=== PATIENT | female | born 1995 | race Caucasian/White ===

== ENCOUNTER 2019-02-24 03:34 | Outpatient (CLI) | payer OTHER ==
[2019-02-24 04:17] LABS: APPEARANCE,URINE CLOUDY; BILIRUBIN,URINE NEGATIVE (NEGATIVE); COLOR,URINE YELLOW; GLUCOSE, URINE NEGATIVE (NEGATIVE); KETONES,URINE NEGATIVE (NEGATIVE); LEUKOCYTE ESTERASE,URINE LARGE (NEGATIVE); NITRITE,URINE NEGATIVE (NEGATIVE); PROTEIN,URINE 30 mg/dL (NEGATIVE); URINE SPECIFIC GRAVITY 1.016; UROBILINOGEN,URINE NEGATIVE mg/dL (<2.0)
[2019-02-24 04:43] LABS: URINE AMPHETAMINES SCREEN NEGATIVE; URINE BARBITURATES SCREEN NEGATIVE; URINE BENZODIAZEPINES SCREEN NEGATIVE; URINE COCAINE SCREEN NEGATIVE; URINE MARIJUANA (THC) SCREEN NEGATIVE; URINE METHADONE SCREEN NEGATIVE; URINE PHENCYCLIDINE SCREEN NEGATIVE
--- NOTE | 2019-02-24 04:46 | Non Stress Test Report ---
Non Stress Test Datetime Report Generated by CPN: 02/24/2019 04:46 DEMOGRAPHIC EGA NST: 39.5 INDICATION Indication for Study: Decreased Movement MONITORING Monitor Explained: Monitor Explained; Test Explained; Patient Verbalized Understanding Time on Monitor: 02/24/2019 03:44 Time off Monitor: 02/24/2019 04:40 NST Duration: 56 NST INTERVENTIONS NST Interventions: PO Hydration Physician Notified NST: Dr. Younger BABY A: [id number] BABY A Movement : Present Contraction Frequency : x1 FHR Baseline : 130 Accelerations : 15X15 Decelerations : None Variability : Moderate 6-25bpm NST Review: Meets Criteria for Reactive NST NST Review and Verified By : TOM Hill NSZion Results: Reactive NST REPORT Report Trigger: Send Report
== END 2019-02-24 04:52 | disposition home or self-care (01) ==
LOC: LC 03:34
PROVIDERS: ATTEND Obstetrics & Gynecology
PROC: 4A1HXCZ Monitoring of Products of Conception, Cardiac Rate, External Approach (ICD-10-PCS; principal; 2019-02-24)
DX: O36.8130 Decreased fetal movements, third trimester, not applicable or unspecified (principal); Z3A.39 39 weeks gestation of pregnancy
CPT/HCPCS: 59025; 80307; 81005

== ENCOUNTER 2019-03-05 05:56 | Inpatient (IN) | payer OTHER ==
[2019-03-05] MEDS ORDERED: RINGERS SOLUTION,LACTATED 1,000 ML IV PRN (06:54)
[2019-03-05] MEDS ORDERED: OXYTOCIN/NORMAL SALINE 20 UNIT/1,000 ML RTUINJ IV PRN ×2 (06:55→16:37)
[2019-03-05] MEDS ORDERED: PENICILLIN G-K 5 MILLION UNIT VIAL ONE ×2 (07:19→12:07)
[2019-03-05] MEDS ORDERED: PENICILLIN G POTASSIUM 5,000,000 UNIT in DEXTROSE 5%-WATER 100 ML IV ONE (07:30)
[2019-03-05] MEDS ORDERED: RINGERS SOLUTION,LACTATED 1,000 ML IV ONE (07:30)
[2019-03-05 07:35] LABS: URINE AMPHETAMINES SCREEN NEGATIVE; URINE BARBITURATES SCREEN NEGATIVE; URINE BENZODIAZEPINES SCREEN NEGATIVE; URINE COCAINE SCREEN NEGATIVE; URINE MARIJUANA (THC) SCREEN NEGATIVE; URINE METHADONE SCREEN NEGATIVE; URINE PHENCYCLIDINE SCREEN NEGATIVE
--- NOTE | 2019-03-05 08:21 | Admission Physical ---
Datetime Report Generated by CPN: 03/05/2019 08:21 CURRENT ADMISSION Chief Complaint: Scheduled Induction of Labor Indication for Induction: Postterm Admit Impression : Term, Intrauterine ; No Active Labor; Intact Membranes; Induction of Labor Admit Plan: Admit to Unit; Initiate Labor Induction Protocol ALLERGIES Medication Allergies: No Medication Allergies: petrolatum,white (02/24/2019); latex (02/24/2019) Latex: Latex Allergies Environmental Allergies: petroleum fumes OBSTETRICAL HISTORY EDC: 02/26/2019 00:00 : 4 Para: 1 Term: 1 : 0 SAB: 0 IAB: 0 Ectopic: 0 Livin Cesareans: 0 VBACs: 0 Multiple Births: 0 Gestational Diabetes: No Rh Sensitization: No Incompetent Cervix: No NÉSTOR: No Infertility: No ART Treatment: No Uterine Anomaly: No IUGR: No Hx Previous C/S: No Macrosomia: No Hx Loss/Stillborn: No PIH: No Hx : No Placenta Previa/Abruption: No Depression/PP Depression: No PTL/PROM: No Post Hemorrhage: No Current Procedures: Ultrasound Obstetrical History Comments: G1- miscariage 6 weeks G2- miscariage 8 weeks G3- 2016 term G4- current SEE RECORDS Alcohol: No Marijuana : No Cocaine: No Other Illicit Drugs: No Cigarettes: Current Everyday Smoker. 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 Heart Disease: No Hosp/Surgery: No Autoimmune Disorder: No Anesthetic Complications: No Kidney Disease: No Abnormal Pap Smear: No Neuro/Epilepsy: No Psychiatric Disorders: No Other Medical Diseases: No Hepatitis/Liver Disease: No Significant Family History: No Varicosities/Phlebitis: No Trauma/Violence : No Thyroid Dysfunction: No INFECTIOUS HISTORY Gonorrhea: No Genital Herpes: No Chlamydia: No Tuberculosis: No Syphilis: No Hepatitis: No HIV/AIDS Exposure: No Rash or Viral Illness: No HPV: No Infectious History Comments: HSV- on valtrex PHYSICAL EXAM General: Normal HEENT: Normal Neurologic: Normal Thyroid: Deferred Heart: Normal Lungs: Normal Breast: Deferred Back: Normal Abdomen: Normal Genitourinary Exam: Normal Extremities: Normal DTRs: Normal Pelvic Type: Adequate Physical Exam Comments: no lesions on Vital Signs: Reviewed VAGINAL EXAM Dilatation: 4 Effacement: 50 Station: -2 Contraction Comments: rare MEMBRANES Membranes: Intact FETUS A EGA: 41.0 Monitoring: External US FHR- Baseline: 160 Variability: Moderate 6-25bpm Accelerations: 15X15 Decelerations: None FHR Category: Category I Presentation: Vertex Admit Comment: 23yo at 41+0ega presents for scheduled IOL. Patient with Advanced Cervical Dilation and GBS positive. PCN for GBS positive. 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 Last outbreak in 2014. No prodrome or outbreak. HSV titers ordered. Last titers done on 09/2018 and was pos HSV 1 IgG. Admit for PCN and when due for second dose then plan for begin pitocin. Anticpate . PLANS FOR LABOR AND DELIVERY Labor and Delivery: None Pain Management: Epidural Feeding Preference: Both Benefit of Breast Feed Discussed: Yes Circumcision: Yes INFORMED CONSENT Informed Consent Obtained: Vaginal Delivery; Induction of Labor; Risks, Benefits and Alternatives Discussed Signature: with User ID: [email or web address]
[2019-03-05 08:29] LABS: ABSOLUTE EOSINOPHILS # (AUTO) 0.1 10^3/uL (0.0-0.6); ABSOLUTE LYMPHOCYTES (AUTO) 2.2 10^3/uL (0.5-4.7); ABSOLUTE MONOCYTES (AUTO) 0.8 10^3/uL (0.1-1.4); BASOPHILS % (AUTO) 0.3 % (0-2); EOSINOPHILS % (AUTO) 0.7 % (0-6); HEMATOCRIT 31.6 % (36.0-47.0); HEMOGLOBIN 10.6 g/dL (12.0-15.5); LYMPHOCYTES % (AUTO) 24.1 % (13-45); MEAN CORPUSCULAR HEMOGLOBIN 26.1 pg (27.0-33.4); MEAN CORPUSCULAR HGB CONC 33.5 g/dL (32.0-36.0); MEAN CORPUSCULAR VOLUME 78 fl (80-97); MONOCYTES % (AUTO) 8.6 % (3-13); PLATELET COUNT 207 10^3/uL (150-450); RED BLOOD COUNT 4.05 10^6/uL (3.72-5.28); RED CELL DISTRIBUTION WIDTH 14.7 % (11.5-14.0); SEGMENTED NEUTROPHILS % (AUTO) 66.3 % (42-78); TOTAL CELLS COUNTED % (AUTO) 100 %
[2019-03-05] MEDS ORDERED: OXYTOCIN/NORMAL SALINE 20 UNIT/1,000 ML RTUINJ ONE (10:13)
[2019-03-05] MEDS ORDERED: OXYTOCIN 10 UNIT/ML VIAL ONE (10:13)
[2019-03-05] MEDS ORDERED: LIDOCAINE 1% INJ-PF (10 MG/ML) 30 ML SDV ONE (10:13)
[2019-03-05] MEDS ORDERED: MISOPROSTOL 0.2 MG TABLET ONE (10:13)
[2019-03-05] MEDS: PENICILLIN G POTASSIUM 2,500,000 UNIT in DEXTROSE 5%-WATER 50 ML IV SCH (12:14)
[2019-03-05] MEDS ORDERED: PHENYLEPHRINE HCL INJ/PF 10 MG/1 ML SDV ONE (14:00)
[2019-03-05] MEDS ORDERED: FENTANYL CITRATE INJ/PF 100 MCG/2 ML AMPUL ONE (14:01)
[2019-03-05] MEDS ORDERED: FENTANYL/BUPIVACAINE/NS/PF 300 MCG/150 ML RTUINJ EPI ONE (14:01)
[2019-03-05] MEDS ORDERED: EPHEDRINE SULFATE INJ 50 MG/1 ML AMPULE ONE (14:01)
[2019-03-05] MEDS ORDERED: BUPIVACAINE HCL 0.25 % INJ/PF (2.5 MG/1 ML) 30 ML VIAL ONE (14:01)
[2019-03-05] MEDS ORDERED: GLYCERIN/WITCH HAZEL LEAF 1 EACH MED..WIPE TP PRN (16:37)
[2019-03-05] MEDS ORDERED: DIBUCAINE 1% OINTMENT 56 GM TP PRN (16:37)
[2019-03-05] MEDS ORDERED: PROMETHAZINE HCL INJ 25 MG/1 ML VIAL IV PRN (16:37)
[2019-03-05] MEDS ORDERED: PROMETHAZINE HCL 25 MG TABLET PO PRN (16:37)
[2019-03-05] MEDS ORDERED: NA PHOS,M-B/NA PHOS,DI-BA (ADULT) 133 ML ENEMA PR PRN (16:37)
[2019-03-05] MEDS ORDERED: ACETAMINOPHEN 650 MG SUPP.RECT PR PRN (16:37)
[2019-03-05] MEDS ORDERED: DIPH/PERTUSS(ACELL)/TETANUS VAC/PF 0.5 ML SYR (>=10YO) IM PRN (16:37)
[2019-03-05] MEDS ORDERED: MAGNESIUM HYDROXIDE SUSP 30 ML UDCUP PO PRN (16:37)
[2019-03-05] MEDS ORDERED: MEASLES,MUMPS&RUBELLA VACC/PF 0.5 ML VIAL SUBCUT PRN (16:37)
[2019-03-05] MEDS ORDERED: DIPHENHYDRAMINE HCL 25 MG CAPSULE PO PRN (16:37)
[2019-03-05] MEDS ORDERED: PSEUDOEPHEDRINE HCL 30 MG TABLET PO PRN (16:37)
[2019-03-05] MEDS ORDERED: PROMETHAZINE HCL 25 MG SUPP.RECT PR PRN (16:37)
[2019-03-05] MEDS ORDERED: ACETAMINOPHEN WITH CODEINE #3 TABLET PO PRN (16:37)
--- NOTE | 2019-03-05 17:48 | Delivery Summary ---
Del Sum A-C Datetime Report Generated by CPN: 03/05/2019 17:48 DELIVERY PERSONNEL DELIVERY PERSONNEL: [id number] Delivery Doctor:: Cindy Stubbs CNM Labor and Delivery Nurse:: Sandy Mayo RNirrigation equipment installer Nurse:: Reena Wiggins RN [place] Operator/TRANSCRIPTION: Erica Gaona, ST Additional Personnel: : Tejas Palafox RN MATERNAL INFORMATION Delivery Anesthesia: Epidural Medications After Delivery: Pitocin Bolus-Please Comment Meds After Delivery Comment: Pitocin 20 U/1000 ML Delivery QBL: 50 Maternal Complications: None Provider Comments: Progressed rapidly after epidural, had decelerations, viable male from OA to ZAIN over intact perineum, left and right periuretral lacerations, NC x 1, loose, easily reduced, placed on mothers abd, suctioned, cord clamped and cut by FOB after 2 minutes, Spont delivery of grossly nl intact placenta, 3 VC, FFFM, massage and Pitocin, baby grunting trying to transition, nursery in to evaluate Lacerations repaired LABOR SUMMARY EDC: 02/26/2019 00:00 No. Babies in Womb: 1 Attempted: No Labor Anesthesia: Epidural LABOR INFORMATION Reason for Induction: Post Dates Onset of Labor: 03/05/2019 13:19 Complete Dilatation: 03/05/2019 15:57 Oxytocin: Induction Group B Beta Strep: POSITIVE Antibiotics # of Doses: 2 Antibiotics Time of Last Dose: 1200 Name of Antibiotic Given: Penecillin Steroids Given: None Reason Steroids Not Administered: Not Applicable MEMBRANES Membranes Rupture Method: Artificial Rupture of Membranes: 03/05/2019 13:19 Length of Rupture (hr): 2.82 Amniotic Fluid Color: Clear Amniotic Fluid Amount: Small Amniotic Fluid Odor: Normal STAGES OF LABOR Stage 1 hr: 2 Stage 1 min: 38 Stage 2 hr: 0 Stage 2 min: 11 Stage 3 hr: 0 Stage 3 min: 6 Total Time in Labor hr: 2 Total Time in Labor min: 55 VAGINAL DELIVERY Episiotomy: None Laceration #1: Periurethral Laceration Extension #1: First Degree Laceration Repair: Yes Laceration Repair Note: 2-0 chromic interrupted sutures BABY A INFORMATION Delivery Date/Time: 03/05/2019 16:08 Method of Delivery: Vaginal Born in Route : No : N/A Forceps: N/A Vacuum Extraction: N/A PRESENTATION/POSITION BABY A Presentation: Cephalic Cephalic Presentation: Vertex Vertex Position: Left Occipital Anterior Breech Presentation: N/A PLACENTA INFORMATION BABY A Placenta Delivery Time : 03/05/2019 16:14 Placenta Method of Delivery: Spontaneous Placenta Status: Delivered SCORES BABY A Heart Rate 1 min: >100 bpm Resp Effort 1 min: Slow, Irregular Reflex Irritability 1 min: Cough or Sneeze or Pulls Away Muscle Tone 1 min: Active Motion Color 1 min: Blue/Pale Resuscitation Effort 1 min: Tactile Stimulation SCORE 1 MIN: 7 Heart Rate 5 min: >100 bpm Resp Effort 5 min: Good Cry Reflex Irritability 5 min: Cough or Sneeze or Pulls Away Muscle Tone 5 min: Active Motion Color 5 min: Body [address], Extremities Blue Resuscitation Effort 5 min: Tactile Stimulation SCORE 5 MIN: 9 INFORMATION BABY A Gestational Age at Delivery: 41.0 Gestational Status: Late Term- 41- 41.6 Weeks Infant Outcome : Liveborn Condition : Stable Sex: Male IDENTIFICATION BABY A Infant Verification Date/Time: 03/05/2019 16:28 ID Band Number: [id number] Mother's Name Verified: Yes Infant RN Verifying : Vinicius Mayo, Additional Verifying Personnel: Lora Wiggins WEIGHT/LENGTH BABY A Infant Birthweight (gm): 3712 Infant Weight (lb): 8 Weight (oz): 3 Infant Length (in): 21.00 Infant Length (cm): 53.34 CORD INFORMATION BABY A No. Cord Vessels: 3 Nuchal Cord : Around Neck x1, Loose Cord Blood Taken: Yes-For Eval (Mom's Blood Type - or O+) Suction: None ASSESSMENT BABY A Infant Complications: Multiple Late Decels Physical Findings at Delivery: Within Normal Limits Infant Respirations: Grunting; Intercostal Retractions; Nasal Flaring Skin to Skin: Yes Skin to Skin Time (min): 8 Blue Prints Trimmer/ALS Called : No Infant Care By: Vinicius Mayo Transferred To: Nursery BABY B INFORMATION : N/A
[2019-03-05] MEDS: IBUPROFEN 800 MG TABLET PO SCH (21:24)
[2019-03-05] MEDS: FAMOTIDINE 20 MG TABLET PO SCH (21:24)
[2019-03-05] MEDS: BENZOCAINE/MENTHOL AEROSOL SPRAY 56 ML TOP PRN (23:25)
[2019-03-06] MEDS: ACETAMINOPHEN WITH CODEINE #3 TABLET PO PRN ×2 (04:44→20:05)
[2019-03-06] MEDS: IBUPROFEN 800 MG TABLET PO SCH ×3 (05:34→21:59)
[2019-03-06 06:55] LABS: HEMOGLOBIN 10.5 g/dL (12.0-15.5); MEAN CORPUSCULAR HEMOGLOBIN 25.9 pg (27.0-33.4); MEAN CORPUSCULAR HGB CONC 32.9 g/dL (32.0-36.0); MEAN CORPUSCULAR VOLUME 79 fl (80-97); PLATELET COUNT 185 10^3/uL (150-450); RED BLOOD COUNT 4.07 10^6/uL (3.72-5.28); RED CELL DISTRIBUTION WIDTH 14.9 % (11.5-14.0); WHITE BLOOD COUNT 13.3 10^3/uL (4.0-10.5)
[2019-03-06] MEDS: DOCUSATE SODIUM 100 MG CAPSULE PO SCH ×3 (07:23→17:03)
[2019-03-06] MEDS: FERROUS SULFATE 325 MG TABLET PO SCH ×3 (07:23→17:04)
[2019-03-06] MEDS: PENICILLIN G POTASSIUM 2,500,000 UNIT in DEXTROSE 5%-WATER 50 ML IV SCH (07:24)
--- NOTE | 2019-03-06 09:31 | PDOC PROGRESS REPORT ---
Subjective-OB Progress Note for:: 03/06/19 Subjective: Doing well, no c/o, breast and bottle, planning on PP BTL Physical Exam (OB) Vital Signs: Temp Pulse Resp BP Pulse Ox 98.2 F 57 L 16 106/58 L 99 03/06/19 09:10 03/06/19 09:10 03/06/19 09:10 03/06/19 09:10 03/06/19 09:10 Intake & Output 03/05/19 03/06/19 03/07/19 06:59 06:59 06:59 Weight 84.9 kg - Lochia Lochia Amount: Small 10-25 ml Lochia Color: Rubra/Red - Abdomen Description: Soft Hernia Present: No Fundal Description: Firm, Midline Fundal Height: u/u - u/2 Objective-Diagnostic Laboratory: 03/06/19 06:17 03/06/19 06:17 WBC 13.3 H RBC 4.07 Hgb 10.5 L Hct 32.0 L MCV 79 L MCH 25.9 L MCHC 32.9 RDW 14.9 H Plt Count 185 Assessment and Plan(PN) - Assessment and Plan (3) Carrier or suspected carrier of group B Streptococcus Is this a current diagnosis for this admission?: Yes (4) Vaginal delivery Is this a current diagnosis for this admission?: Yes - Time Spent with Patient Time with patient: Less than 15 minutes Medications reviewed and adjusted accordingly: Yes - Disposition Anticipated Discharge: Home Within: within 24 hours
[2019-03-06] MEDS: FAMOTIDINE 20 MG TABLET PO SCH ×2 (10:57→21:59)
[2019-03-06] MEDS: PRENATAL VITAMIN W DHA CAPSULE PO SCH (10:57)
[2019-03-06] MEDS: SENNOSIDES/DOCUSATE 8.6-50 MG 1 EACH TABLET PO SCH (10:57)
[2019-03-06] MEDS ORDERED: ACETAMINOPHEN 325 MG TABLET PO PRN (10:59)
[2019-03-07] MEDS: IBUPROFEN 800 MG TABLET PO SCH (06:07)
[2019-03-07] MEDS: FERROUS SULFATE 325 MG TABLET PO SCH (09:25)
[2019-03-07] MEDS: DOCUSATE SODIUM 100 MG CAPSULE PO SCH (09:26)
[2019-03-07] MEDS: SENNOSIDES/DOCUSATE 8.6-50 MG 1 EACH TABLET PO SCH (09:26)
[2019-03-07] MEDS: PRENATAL VITAMIN W DHA CAPSULE PO SCH (09:26)
[2019-03-07] MEDS: FAMOTIDINE 20 MG TABLET PO SCH (09:26)
--- NOTE | 2019-03-07 10:38 | PDOC PROGRESS REPORT ---
Subjective-OB Progress Note for:: 03/07/19 Subjective: Doing well, no c/o, breast and bottle feeding, scant lochia Physical Exam (OB) Vital Signs: Temp Pulse Resp BP Pulse Ox 98.3 F 72 16 113/74 100 03/07/19 07:14 03/07/19 07:14 03/07/19 07:14 03/07/19 07:14 03/07/19 07:14 - Lochia Lochia Amount: Small 10-25 ml Lochia Color: Rubra/Red - Abdomen Description: Soft Hernia Present: No Fundal Description: Firm, Midline Fundal Height: u/u - u/2 Objective-Diagnostic Laboratory: 03/06/19 06:17 Assessment and Plan(PN) - Assessment and Plan (2) Herpes infection during , antepartum Is this a current diagnosis for this admission?: Yes (3) Carrier or suspected carrier of group B Streptococcus Is this a current diagnosis for this admission?: Yes (4) Vaginal delivery Is this a current diagnosis for this admission?: Yes - Time Spent with Patient Time with patient: Less than 15 minutes Medications reviewed and adjusted accordingly: Yes - Disposition Anticipated Discharge: Home Within: within 24 hours
--- NOTE | 2019-03-07 10:43 | PDOC DISCHARGE SUMMARY ---
Impression - Admit/DC Date/PCP Admission Date/Primary Care Provider: 03/05/19 05:56 VENESSA GODINEZ MD Discharge Date: 03/07/19 - Discharge Diagnosis (2) Herpes infection during , antepartum Is this a current diagnosis for this admission?: Yes (3) Carrier or suspected carrier of group B Streptococcus Is this a current diagnosis for this admission?: Yes (4) Vaginal delivery Is this a current diagnosis for this admission?: Yes - Additional Information Resuscitation Status: Full Code Discharge Diet: As Tolerated, Regular Discharge Activity: Activity As Tolerated, No Lifting Over 10 Pounds, No Lifting/Push/Pulling, Pelvic Rest Referrals: VENESSA GODINEZ MD [Primary Care Provider] - (4 weeks) Home Medications: Vits96/Iron Fum/Folic [ Tablet] 1 tab PO DAILY 02/22/19 Valacyclovir HCl [Valtrex] 1,000 mg PO DAILY 02/22/19 HPI Gestational Age: 41 Reason(s) for Admission: Induction of Labor, Group B Strep Positive Admission Note: post dates Procedures: NST, Ultrasound Intrapartum Procedure(s): Spontaneous Vaginal Delivery Complication(s): Laceration-Periurethral Laceration-Degree: 1st - wt= 8-3. apgars 7/9, baby home with mother Hospital Course Hospital Course: routine Results Laboratory Results: WBC 13.3 10^3/uL (4.0-10.5) H 03/06/19 06:17 RBC 4.07 10^6/uL (3.72-5.28) 03/06/19 06:17 Hgb 10.5 g/dL (12.0-15.5) L 03/06/19 06:17 Hct 32.0 % (36.0-47.0) L 03/06/19 06:17 MCV 79 fl (80-97) L 03/06/19 06:17 MCH 25.9 pg (27.0-33.4) L 03/06/19 06:17 MCHC 32.9 g/dL (32.0-36.0) 03/06/19 06:17 RDW 14.9 % (11.5-14.0) H 03/06/19 06:17 Plt Count 185 10^3/uL (150-450) 03/06/19 06:17 Lymph % (Auto) 24.1 % (13-45) 03/05/19 07:52 Burnett % (Auto) 8.6 % (3-13) 03/05/19 07:52 Eos % (Auto) 0.7 % (0-6) 03/05/19 07:52 Baso % (Auto) 0.3 % (0-2) 03/05/19 07:52 Absolute Neuts (auto) 6.0 10^3/uL (1.7-8.2) 03/05/19 07:52 Absolute Lymphs (auto) 2.2 10^3/uL (0.5-4.7) 03/05/19 07:52 Absolute Monos (auto) 0.8 10^3/uL (0.1-1.4) 03/05/19 07:52 Absolute Eos (auto) 0.1 10^3/uL (0.0-0.6) 03/05/19 07:52 Absolute Basos (auto) 0.0 10^3/uL (0.0-0.2) 03/05/19 07:52 Seg Neutrophils % 66.3 % (42-78) 03/05/19 07:52 Urine Opiates Screen NEGATIVE 03/05/19 06:30 Urine Methadone Screen NEGATIVE 03/05/19 06:30 Ur Barbiturates Screen NEGATIVE 03/05/19 06:30 Ur Phencyclidine Scrn NEGATIVE 03/05/19 06:30 Ur Amphetamines Screen NEGATIVE 03/05/19 06:30 U Benzodiazepines Scrn NEGATIVE 03/05/19 06:30 Urine Cocaine Screen NEGATIVE 03/05/19 06:30 U Marijuana (THC) Screen NEGATIVE 03/05/19 06:30 RPR NONREACTIVE (NONREACTIVE) 03/05/19 07:52 Blood Type O POSITIVE 03/05/19 07:52 Antibody Screen NEGATIVE 03/05/19 07:52 Plan Health Concerns: routine Plan of Treatment: routine Goals: baby home with mom Time Spent: Less than 30 Minutes
[2019-03-07 11:35] VITALS: BP 106/58
[2019-03-07] MEDS: BENZOCAINE/MENTHOL AEROSOL SPRAY 56 ML TOP PRN (12:50)
== END 2019-03-07 12:53 | disposition home or self-care (01) | DRG 807 ==
LOC: LR 05:56 → 2S 18:35
PROVIDERS: ADMIT Student in an Organized Health Care Education/Training Program; ATTEND Student in an Organized Health Care Education/Training Program
PROC: 10E0XZZ Delivery of Products of Conception, External Approach (ICD-10-PCS; principal; 2019-03-05)
PROC: 0UQMXZZ Repair Vulva, External Approach (ICD-10-PCS; 2019-03-05)
DX: O98.32 Other infections with a predominantly sexual mode of transmission complicating childbirth (principal); Z37.0 Single live birth; O99.824 Streptococcus B carrier state complicating childbirth; O48.0 Post-term pregnancy; O76 Abnormality in fetal heart rate and rhythm complicating labor and delivery; O71.82 Other specified trauma to perineum and vulva; Z3A.41 41 weeks gestation of pregnancy; O69.81X0 Labor and delivery complicated by cord around neck, without compression, not applicable or unspecified; O99.334 Smoking (tobacco) complicating childbirth; F17.210 Nicotine dependence, cigarettes, uncomplicated; A60.00 Herpesviral infection of urogenital system, unspecified; Z79.899 Other long term (current) drug therapy
CPT/HCPCS: 36415; 80307; 85025; 85027; 86592; 86695; 86850; 86900; 86901; 94760; 99465; J2370; J2540; J2590; J3010; J3490; J7060

== ENCOUNTER 2019-05-24 07:10 | Day surgery (SDC) | payer OTHER ==
[~2019-05-24 07:10] MED LIST: LACTATED RINGERS 1000 ML IV PRN; LIDOCAINE 0.5% INJ-PF (5 MG/ML) 50 ML SDV SUBCUT PRN
[2019-05-24 07:54] LABS: APPEARANCE,URINE SLIGHTLY-CLOUDY; BILIRUBIN,URINE NEGATIVE (NEGATIVE); COLOR,URINE YELLOW; GLUCOSE, URINE NEGATIVE (NEGATIVE); KETONES,URINE NEGATIVE (NEGATIVE); LEUKOCYTE ESTERASE,URINE NEGATIVE (NEGATIVE); NITRITE,URINE NEGATIVE (NEGATIVE); PROTEIN,URINE 30 mg/dL (NEGATIVE); URINE SPECIFIC GRAVITY 1.024; UROBILINOGEN,URINE NEGATIVE mg/dL (<2.0)
[2019-05-24 08:34] LABS: ABSOLUTE EOSINOPHILS # (AUTO) 0.1 10^3/uL (0.0-0.6); ABSOLUTE LYMPHOCYTES (AUTO) 2.4 10^3/uL (0.5-4.7); ABSOLUTE MONOCYTES (AUTO) 0.5 10^3/uL (0.1-1.4); BASOPHILS % (AUTO) 0.5 % (0-2); EOSINOPHILS % (AUTO) 1.4 % (0-6); HEMATOCRIT 38.4 % (36.0-47.0); HEMOGLOBIN 13.1 g/dL (12.0-15.5); LYMPHOCYTES % (AUTO) 39.4 % (13-45); MEAN CORPUSCULAR HEMOGLOBIN 27.1 pg (27.0-33.4); MEAN CORPUSCULAR VOLUME 80 fl (80-97); MONOCYTES % (AUTO) 8.1 % (3-13); PLATELET COUNT 219 10^3/uL (150-450); RED BLOOD COUNT 4.81 10^6/uL (3.72-5.28); RED CELL DISTRIBUTION WIDTH 16.1 % (11.5-14.0); SEGMENTED NEUTROPHILS % (AUTO) 50.6 % (42-78); TOTAL CELLS COUNTED % (AUTO) 100 %
[2019-05-24] MEDS ORDERED: LACTATED RINGERS 1000 ML IV PRN (09:00)
[2019-05-24] MEDS ORDERED: FENTANYL CITRATE INJ/PF 100 MCG/2 ML AMPUL ONE ×2 (09:08→10:49)
[2019-05-24] MEDS ORDERED: PROPOFOL INJ 200 MG/20 ML VIAL IV ONE (09:08)
[2019-05-24] MEDS ORDERED: MIDAZOLAM 2 MG/2 ML INJ ONE (09:08)
[2019-05-24] MEDS ORDERED: DEXAMETHASONE SOD PHOSPHATE INJ 4 MG/1 ML VIAL ONE (09:08)
[2019-05-24] MEDS ORDERED: LIDOCAINE 2% INJ-PF (100 MG/5 ML) SYRINGE ONE (09:08)
[2019-05-24] MEDS ORDERED: ONDANSETRON HCL INJ/PF 4 MG/2 ML SDV ONE (09:08)
[2019-05-24] MEDS ORDERED: DIPHENHYDRAMINE HCL 50 MG/ML VIAL IV PRN (09:57)
[2019-05-24] MEDS ORDERED: OXYCODONE-ACETAMINOPHEN 5-325 MG TABLET PO PRN ×3 (09:57→11:07)
[2019-05-24] MEDS ORDERED: PROMETHAZINE HCL INJ 25 MG/1 ML VIAL IV PRN (09:57)
[2019-05-24] MEDS ORDERED: MEPERIDINE HCL/PF INJ 25 MG/1 ML DISP.SYRIN IV PRN (09:57)
[2019-05-24] MEDS ORDERED: ONDANSETRON HCL INJ/PF 4 MG/2 ML SDV IV PRN (09:57)
[2019-05-24] MEDS ORDERED: FENTANYL CITRATE INJ/PF 100 MCG/2 ML AMPUL IV PRN ×3 (09:57)
[2019-05-24] MEDS ORDERED: MORPHINE SULFATE 10 MG/ML INJ IV PRN (09:57)
[2019-05-24] MEDS: MEPERIDINE HCL/PF INJ 25 MG/1 ML DISP.SYRIN ONE ×2 (10:45→10:50)
[2019-05-24] MEDS ORDERED: ACETAMINOPHEN 1,000 MG/100 ML RTUPB IV ONE (11:03)
[2019-05-24] MEDS ORDERED: KETOROLAC TROMETHAMINE INJ/PF 30 MG/1 ML SDV ONE (11:03)
--- NOTE | 2019-05-24 11:04 | Operative Report ---
Operative Report DATE OF SURGERY: 05/24/19 PREOPERATIVE DIAGNOSIS: Undesired fertility. Multigravida POSTOPERATIVE DIAGNOSIS: Same as above OPERATION: Laparoscopic bilateral tubal ligation SURGEON: CATA RUTLEDGE ANESTHESIA: GA TISSUE REMOVED OR ALTERED: None COMPLICATIONS: None ESTIMATED BLOOD LOSS: 10 ml INTRAOPERATIVE FINDINGS: Normal appearing bilateral fallopian tubes, ovaries and uterus. Small amount of free fluid in pelvis -serous appearing. Liver edge and gall bladder noted normal. PROCEDURE: IV fluids: per anesthesia record Urinary output: 50 cc Findings: Normal-appearing uterus bilateral fallopian tubes and ovaries. Appendix and liver edge seen and appears normal Position: To recovery room in stable condition Description of procedure: The patient was taken to the operating room and general anesthesia was administered and found to be adequate. She was then placed on the OR table in the dorsal lithotomy position. The Patient was prepped and draped in usual sterile fashion. Timeout was taken. A bi-valve speculum was used to visualize the cervix. The anterior lip of the cervix was then grasped with a single tooth tenaculum and an acorn uterine manipulator was placed. At this time attention was turned of the patient's abdomen and sterile gloves were donned a 1 cm infra umbilical incision was made vertically and carried down to the level of the rectus fascia. The rectus fascia was then grasped with 2 Jay clamps elevated and incised with Coronado scissors. A digital sweep was done noting entry into the peritoneum. The fascia was tagged bilaterally with 0- vicryl suture. A #12 Lisa trocar was positioned and CO2 gas was used to insufflate the abdomen to a quantity sufficient for the laparoscopy. The laparoscope was inserted and a survey was done of the abdomen pictures were obtained. Findings noted normal anatomy. The right fallopian tube was identified and traced to its fimbriated end. The right ovary was noted to be normal. A Filshie clip was then placed approximately 1 to 2 cm from the uterine cornu across the right fallopian tube. The Filshie clip was noted to surround the tube in its entirety good blanching and hemostasis was noted. The left fallopian tube was then traced to its fibriated end and a Filshie clip was placed 1 to 2 c m from the uterine cornu on the left fallopian tube. The Filshie clip was noted to surround the tube in its entirety with good blanching and hemostasis was noted. Pictures were obtained. At this point the procedure was terminated. All instrument removed from the patient's abdomen and CO2 gas was allowed to escape. The infraumbilical port was removed. The fascia was closed with previously placed 0 Vicryl suture. The skin was closed with 3-0 Monocryl in a series of interrupted stitches. The skin incision was then clean dried and Dermabond was applied over the skin incision. All instrument sponge and needle counts were correct x3 for the procedure the patient tolerated the procedure well. She will proceed to recovery room in stable condition
[2019-05-24] MEDS ORDERED: IBUPROFEN 800 MG TABLET PO PRN (11:06)
[2019-05-24] MEDS ORDERED: OXYCODONE-ACETAMINOPHEN 5-325 MG TABLET ONE (11:45)
[2019-05-24 13:11] VITALS: BP 113/76
[2019-05-24] MEDS ORDERED: NEOSTIGMINE METHYLSULFATE 10 MG/10 ML VIAL ONE (13:46)
== END 2019-05-24 12:55 | disposition home or self-care (01) ==
LOC: OROUT 07:10
PROVIDERS: ATTEND Obstetrics & Gynecology
DX: Z30.2 Encounter for sterilization (principal); Z87.891 Personal history of nicotine dependence; Z79.899 Other long term (current) drug therapy; Z91.040 Latex allergy status
CPT/HCPCS: 36415; 85025; 81025; 81001; 58671; J2250; J1100; J3010; J2001; J2175; J1885; J2710; J2405; J2704; J0131